=== PATIENT | female | born 1945 | race Caucasian/White ===

== ENCOUNTER 2016-06-19 12:19 | Emergency (ER) | payer MEDICARE, MEDICAID ==
[~2016-06-19] VITALS: Ht 167.6 cm; Wt 104.3 kg
[~2016-06-19 12:19] MED LIST: AUGMENTIN 875 M1 TA1 PO; CIPRO500 MG PO; COUMADIN2 M1 PO; COUMADIN2 MG PO; COUMADIN3 M1 PO; COZAAR100 MG PO; DAYPRO600 M1 PO; DOXYCYCLINE100 M3 PO; FLAGYL500 MG PO; HYDROCHLOROTHIA25 MG PO; LEVAQUIN750 MG PO; NEXIUM40 MG PO; PHENERGAN25 MG RC; PRILOSEC20 MG PO; PRILOSEC40 M1 PO; ROBAXIN750 MG PO; SOTALOL HCL120 MG PO; VICODIN 5/500 505 MG PO; VICODIN ES 7501 TAB PO
[2016-06-19 12:31] VITALS: BP 136/72
[2016-06-19 13:03] LABS: BASO % 0.3 % (0.0-1.0); EOS # 0.1 10*3/uL (0.0-0.4); HEMOGLOBIN 12.7 g/dl (12.0-16.0); IG # 0.1 10*3/uL (0.0-0.1); LYMPH # 2.2 10*3/uL (1.3-4.4); LYMPH % 18.4 % (27.0-41.0); MEAN CELL VOLUME 82.4 fl (81.0-99.0); MEAN CORPUSCULAR HGB 24.9 pg (27.0-31.0); MEAN CORPUSCULAR HGB CONC 30.2 g/dl (33.0-37.0); MEAN PLATELET VOLUME 10.6 fl (9.6-12.3); MONO # 0.6 10*3/uL (0.1-1.0); MONO % 4.6 % (3.0-9.0); NEUT % 75.2 % (47.0-73.0); PLATELET COUNT AUTOMATED 311 10*3/uL (130-400); RED CELL DISTRI WIDTH 15.3 % (0-14.5); WHITE BLOOD COUNT 11.9 10*3/uL (4.8-10.8)
[2016-06-19 13:14] LABS: INTERNATIONAL NORM RATIO 2.2 (2.0-3.5)
[2016-06-19 13:23] LABS: ALBUMIN 3.3 gm/dl (3.1-4.5); ALKALINE PHOSPHATASE 86 U/L (45-117); BILIRUBIN, TOTAL 0.7 mg/dl (0.2-1.0); BUN 13 mg/dl (7-24); CARBON DIOXIDE 28 mmol/L (21-32); CHLORIDE 105 mmol/L (98-107); CKMB 0.8 ng/ml (0.5-3.6); CPK 58 U/L (26-192); EST GLOM FILT AFRICAN AMERICAN 54 ml/min; GLUCOSE 133 mg/dL (65-99); POTASSIUM 3.8 mmol/L (3.5-5.1); SGOT/AST 15 IU/L (3-35); SGPT/ALT 16 U/L (12-78); SODIUM 142 mmol/L (136-145); TOTAL PROTEIN 7.9 gm/dL (6.4-8.2)
[2016-06-19 13:24] LABS: TROPONIN I < 0.015 ng/ml (<0.5)
[2016-06-19] MEDS ORDERED: PREDNISONE10 MG PO (13:50)
[2016-06-19] MEDS ORDERED: DOXYCYCLINE100 M3 PO (13:50)
== END 2016-06-19 14:11 | disposition left against medical advice (07) ==
LOC: ED 12:19 → EDHOLD 13:45 → ED 14:11
PROVIDERS: Internal Medicine
DX: R07.9 Chest pain, unspecified (principal); Z79.01 Long term (current) use of anticoagulants; I48.91 Unspecified atrial fibrillation

== ENCOUNTER → 2017-03-11 | Outpatient (CLI) | payer MEDICARE, MEDICAID ==
[~2017-03-11] MED LIST changes: +PREDNISONE10 MG PO
== END | disposition home or self-care (01) ==
LOC: CARD 03:22
DX: I48.0 Paroxysmal atrial fibrillation (principal)

== ENCOUNTER → 2017-08-07 | Outpatient (CLI) | payer MEDICARE, MEDICAID ==
[2017-08-07 10:44] LABS: BASO % 0.4 % (0.0-1.0); EOS # 0.2 10*3/uL (0.0-0.4); HEMATOCRIT 38.1 % (37.0-47.0); HEMOGLOBIN 11.6 g/dl (12.0-16.0); LYMPH % 27.5 % (27.0-41.0); MEAN CELL VOLUME 81.8 fl (81.0-99.0); MEAN CORPUSCULAR HGB 24.9 pg (27.0-31.0); MEAN CORPUSCULAR HGB CONC 30.4 g/dl (33.0-37.0); MEAN PLATELET VOLUME 10.7 fl (9.6-12.3); MONO # 0.4 10*3/uL (0.1-1.0); MONO % 4.9 % (3.0-9.0); NEUT # 4.8 10*3/uL (2.3-7.9); NEUT % 64.7 % (47.0-73.0); PLATELET COUNT AUTOMATED 256 10*3/uL (130-400); RED BLOOD COUNT 4.66 10*6/uL (4.10-5.10); RED CELL DISTRI WIDTH 16.4 % (0-14.5); WHITE BLOOD COUNT 7.4 10*3/uL (4.8-10.8)
[2017-08-07 11:07] LABS: ALBUMIN 3.3 gm/dl (3.1-4.5); CREATININE 1.25 mg/dL (0.55-1.02); POTASSIUM 3.7 mmol/L (3.5-5.1); TOTAL PROTEIN 7.1 gm/dL (6.4-8.2)
[2017-08-07 11:15] LABS: THYROID STIM HORMONE (HS) 3.72 uIU/ml (0.358-4.75)
== END | disposition home or self-care (01) ==
LOC: LAB 10:08
PROVIDERS: Internal Medicine
DX: I10 Essential (primary) hypertension (principal); E78.00 Pure hypercholesterolemia, unspecified; E66.01 Morbid (severe) obesity due to excess calories; Z79.899 Other long term (current) drug therapy

== ENCOUNTER 2018-07-03 14:13 | Emergency (ER) | payer MEDICARE, MEDICAID ==
[~2018-07-03] VITALS: Ht 167.6 cm; Wt 113.4 kg
--- NOTE | ~2018-07-03 | EKG ---
[place], [place] ELECTROCARDIOGRAM REPORT NAME: YI GONZÁLES UNIT #: [id number] ROOM: DOCTOR: EPIPHANY DRAFT REPORT BIRTHDATE: [birth year] [facility] Test Date: 2018-07-03 Test Time: 14:47:49 Pat Name: YI GONZÁLES Department: ER Room: Gender: F Assistant Production Editor: EKG.TX : 1945 Requested By: NADIA GARCIA Order Number: [id number] Reading MD: Rohit Sandoval MD Measurements Intervals [place] Rate: 83 P: [place]: QRS: 29 QRSD: 113 T: 20 QT: 389 QTc: 457 Interpretive Statements Atrial fibrillation Incomplete right bundle branch block Baseline wander in lead(s) III,aVF Electronically Signed On 07-03-2018 18:30:34 PST by Rohit Sandoval MD CM:EKGRPT:ELECTROCARDIOGRAM REPORT [id number] NADIA GARCIA EPIPHANY DRAFT REPORT NADIA GARCIA
[2018-07-03 14:56] LABS: BASO % 0.5 % (0.0-1.0); EOS # 0.1 10*3/uL (0.0-0.4); EOS % 0.7 % (1.0-4.0); HEMATOCRIT 34.4 % (37.0-47.0); HEMOGLOBIN 10.3 g/dl (12.0-16.0); LYMPH # 1.4 10*3/uL (1.3-4.4); LYMPH % 16.4 % (27.0-41.0); MEAN CELL VOLUME 76.1 fl (81.0-99.0); MEAN CORPUSCULAR HGB 22.8 pg (27.0-31.0); MEAN CORPUSCULAR HGB CONC 29.9 g/dl (33.0-37.0); MEAN PLATELET VOLUME 10.4 fl (9.6-12.3); MONO # 0.4 10*3/uL (0.1-1.0); MONO % 4.9 % (3.0-9.0); NEUT # 6.8 10*3/uL (2.3-7.9); PLATELET COUNT AUTOMATED 243 10*3/uL (130-400); RED BLOOD COUNT 4.52 10*6/uL (4.10-5.10); RED CELL DISTRI WIDTH 16.4 % (0-14.5); WHITE BLOOD COUNT 8.8 10*3/uL (4.8-10.8)
[2018-07-03 15:04] LABS: ACT PARTIAL THROMBO TIME 27.8 SECONDS (20.8-31.5); INTERNATIONAL NORM RATIO 1.6 (2.0-3.5)
[2018-07-03 15:17] LABS: ALBUMIN 3.4 gm/dl (3.1-4.5); ALKALINE PHOSPHATASE 87 U/L (45-117); BUN 12 mg/dl (7-24); CHLORIDE 108 mmol/L (98-107); CREATININE 1.16 mg/dL (0.55-1.02); LIPASE 124 U/L (73-393); POTASSIUM 3.6 mmol/L (3.5-5.1); SGOT/AST 35 IU/L (3-35); SGPT/ALT 31 U/L (12-78); SODIUM 140 mmol/L (136-145); TOTAL PROTEIN 7.2 gm/dL (6.4-8.2)
[2018-07-03 15:19] LABS: TROPONIN I < 0.015 ng/ml (<0.045)
[2018-07-03 16:02] LABS: BILIRUBIN NEGATIVE (NEGATIVE); BLOOD NEGATIVE (NEGATIVE); CLARITY CLEAR (CLEAR); COLOR YELLOW (YELLOW); GLUCOSE NEGATIVE (NEGATIVE); KETONE NEGATIVE (NEGATIVE); LEUKO ESTERASE TRACE (NEGATIVE); NITRITE NEGATIVE (NEGATIVE); SPECIFIC GRAVITY <= 1.005 (1.005-1.030)
[2018-07-03 16:24] LABS: RBC 0-2 rbc/hpf (0-2)
[2018-07-03] MEDS ORDERED: MEDROL DOSEPAK4 MG PO (17:18)
[2018-07-03] MEDS ORDERED: ZITHROMAX250 MG PO (17:18)
[2018-07-03] MEDS ORDERED: PROAIR HFA8.5 GM INH (17:18)
[2018-07-03] MEDS ORDERED: SIMETHICONE80 MG PO (17:20)
== END 2018-07-03 17:25 | disposition home or self-care (01) ==
LOC: ED 14:13
PROVIDERS: Nurse Practitioner Family
DX: J40 Bronchitis, not specified as acute or chronic (principal); K42.9 Umbilical hernia without obstruction or gangrene; Z79.899 Other long term (current) drug therapy; Z79.01 Long term (current) use of anticoagulants

== ENCOUNTER → 2018-09-19 | Outpatient (CLI) | payer MEDICARE, MEDICAID ==
[~2018-09-19] MED LIST changes: +MEDROL DOSEPAK4 MG PO; +PROAIR HFA8.5 GM INH; +SIMETHICONE80 MG PO; +ZITHROMAX250 MG PO
[2018-09-19 12:20] LABS: THYROID STIM HORMONE (HS) 4.04 uIU/ml (0.358-4.75)
== END | disposition home or self-care (01) ==
LOC: LAB 11:17
PROVIDERS: Internal Medicine Cardiovascular Disease
DX: I48.0 Paroxysmal atrial fibrillation (principal); R06.09 Other forms of dyspnea

== ENCOUNTER 2019-02-23 12:03 | Inpatient (IN) | payer MEDICARE, MEDICAID ==
[~2019-02-23] VITALS: Ht 167.6 cm; Wt 112.2 kg
[2019-02-23] VITALS (7 sets, daily range): BP systolic 154–164; BP diastolic 74–90
[2019-02-23] MEDS ORDERED: METOPROLOL TART50 M1 PO (12:15)
[2019-02-23 12:33] LABS: BASO % 0.4 % (0.0-1.0); EOS # 0.1 10*3/uL (0.0-0.4); EOS % 1.2 % (1.0-4.0); HEMOGLOBIN 10.7 g/dl (12.0-16.0); LYMPH # 1.5 10*3/uL (1.3-4.4); LYMPH % 20.6 % (27.0-41.0); MEAN CELL VOLUME 75.7 fl (81.0-99.0); MEAN CORPUSCULAR HGB 21.9 pg (27.0-31.0); MEAN CORPUSCULAR HGB CONC 28.9 g/dl (33.0-37.0); MEAN PLATELET VOLUME 11.8 fl (9.6-12.3); MONO # 0.5 10*3/uL (0.1-1.0); MONO % 6.3 % (3.0-9.0); NEUT # 5.2 10*3/uL (2.3-7.9); NEUT % 71.2 % (47.0-73.0); PLATELET COUNT AUTOMATED 257 10*3/uL (130-400); RED BLOOD COUNT 4.89 10*6/uL (4.10-5.10); RED CELL DISTRI WIDTH 17.8 % (0-14.5); WHITE BLOOD COUNT 7.3 10*3/uL (4.8-10.8)
[2019-02-23 12:43] LABS: ACT PARTIAL THROMBO TIME 34.2 SECONDS (20.0-32.1); INTERNATIONAL NORM RATIO 2.5 (2.0-3.5)
[2019-02-23 12:48] LABS: ALBUMIN 3.5 gm/dl (3.1-4.5); ALKALINE PHOSPHATASE 111 U/L (45-117); BUN 11 mg/dl (7-24); CHLORIDE 107 mmol/L (98-107); CREATININE 1.16 mg/dL (0.55-1.02); POTASSIUM 3.6 mmol/L (3.5-5.1); SGOT/AST 20 IU/L (3-35); SGPT/ALT 13 U/L (12-78); SODIUM 138 mmol/L (136-145); TOTAL PROTEIN 7.4 gm/dL (6.4-8.2)
[2019-02-23 12:50] LABS: TROPONIN I < 0.015 ng/ml (<0.045)
--- NOTE | 2019-02-23 12:58 | NUR ---
PT RESTING QUIELTY IN ROOM WITH FAMILY AT THE BEDSIDE. NO ACUTE DISTRESS NOTED, RESPIRATIONS 18, POX 99%. PT VOICES NO OTHER C/O AT THIS TIME.
--- NOTE | 2019-02-23 13:50 | NUR ---
A 73, admitted to , under the services of WAQAS Murrieta DO with a diagnosis of CHEST PAIN TO R/O SC. Chief complaint is SHORTNESS OF BREATH. Patient arrived via ambulatory from ER. Monitor applied. Initial assessment completed. Vital signs taken and recorded. WAQAS MURRIETA DO notified of admission to the unit. Orders received. See assessment for past medical history, medications and allergies. Patient and/or family oriented to unit. [facility] visitation policy reviewed. Clothing/patient valuable form completed. SAM RICHARD
[2019-02-23] MEDS ORDERED: KLOR-CON 1010 ME1 PO (15:29)
[2019-02-23] MEDS ORDERED: LASIX20 MG PO (15:30)
--- NOTE | 2019-02-23 16:43 | NUR ---
NOTIFIED DR MERCADO OF HOME MEDS RECONCILED.
--- NOTE | 2019-02-23 17:52 | NUR ---
Called ANSWERING SERVICE AND LEFT MESSAGE THAT DR. GROVER WAS CONSULTING HIM FOR THIS PATIENT FOR CHEST PAIN.
--- NOTE | 2019-02-23 19:35 | NUR ---
Patient resting quietly with no c/o discomfort. Respirations easy and regular. Blood pressure 163/78. Medicated with 2200 Metoprolol. No overt distress. RAMEZ GAUTAM
--- NOTE | 2019-02-23 23:48 | NUR ---
Patient sleeping in bed. Respirations easy and unlabored. No distress noted. Call light within reach.
[2019-02-24] VITALS: BP 130/61
--- NOTE | 2019-02-24 00:04 | NUR ---
24 HR chart check completed.
[2019-02-24 07:33] LABS: BASO % 0.4 % (0.0-1.0); EOS # 0.1 10*3/uL (0.0-0.4); EOS % 1.3 % (1.0-4.0); HEMATOCRIT 35.2 % (37.0-47.0); HEMOGLOBIN 10.4 g/dl (12.0-16.0); MEAN CELL VOLUME 74.7 fl (81.0-99.0); MEAN CORPUSCULAR HGB 22.1 pg (27.0-31.0); MEAN CORPUSCULAR HGB CONC 29.5 g/dl (33.0-37.0); MEAN PLATELET VOLUME 11.4 fl (9.6-12.3); MONO # 0.4 10*3/uL (0.1-1.0); MONO % 6.5 % (3.0-9.0); NEUT # 4.2 10*3/uL (2.3-7.9); NEUT % 62.7 % (47.0-73.0); PLATELET COUNT AUTOMATED 218 10*3/uL (130-400); RED BLOOD COUNT 4.71 10*6/uL (4.10-5.10); RED CELL DISTRI WIDTH 17.3 % (0-14.5); WHITE BLOOD COUNT 6.7 10*3/uL (4.8-10.8)
[2019-02-24 07:56] LABS: ALBUMIN 3.2 gm/dl (3.1-4.5); ALKALINE PHOSPHATASE 106 U/L (45-117); BUN 12 mg/dl (7-24); CHLORIDE 106 mmol/L (98-107); CHOLESTEROL 130 mg/dL (<200); CREATININE 1.04 mg/dL (0.55-1.02); HDL CHOLESTEROL 35 mg/dl (40-60); LDL CHOLESTEROL 72 mg/dL (9-159); PHOSPHOROUS 3.8 mg/dL (2.5-4.9); POTASSIUM 3.5 mmol/L (3.5-5.1); SGOT/AST 14 IU/L (3-35); SGPT/ALT 12 U/L (12-78); SODIUM 141 mmol/L (136-145); TRIGLYCERIDES 116 mg/dl (<150); VLDL CHOLESTEROL 23 mg/dL (6-40)
[2019-02-24 07:59] LABS: INTERNATIONAL NORM RATIO 2.5 (2.0-3.5)
[2019-02-24 08:00] VITALS: BP 140/80
--- NOTE | 2019-02-24 08:57 | NUR ---
DR. ADKINS IN TO SEE PATIENT. PER HIM PATIENT TO HAVE STRESS TEST IN MORNING.
[2019-02-24 10:25] LABS: VITAMIN D, 25-HYDROXY 17.3 ng/mL (30-100)
--- NOTE | 2019-02-24 10:28 | NUR ---
PATIENT UP IN CHAIR. VOICES NO COMPLAINTS AT THIS TIME. AWARE OF STRESS TEST ORDERED IN THE MORNING AND THAT SHE IS TO BE NPO AT MIDNIGHT. CALL LIGHT WITHIN REACH. WILL CONTINUE TO MONITOR.
--- NOTE | 2019-02-24 10:30 | NUR ---
Indigo Mixer in to talk to patient. Patient states lives at home alone with her family checking in on her. There are 0 steps in the home. Physician: Sylvester Keen [facility]acy: [facility] Home health services: none Patient's level of ADLs: INDEPENDENT Patient has working utilities: yes DME: none Follow-up physician's appointment after d/c: will be made by the hospitalist nurse director upon discharge Does patient want to access PORTAL?: no Discharge plan discussed with patient. She lives at home alone with her family checking in on her. She is independent in her ADLs and ambulation. Discussed home health care services and she denies any home needs at this time. When medically stable she will be discharged to home. Her sister will provide transportation on discharge. COMFORT ANTOINE
[2019-02-24 12:00] VITALS: BP 135/71
--- NOTE | 2019-02-24 13:54 | NUR ---
NOTIFIED DR. GROVER PATIENT FAMILY IS REQUESTING SOMEONE COME DISCUSS PLAN OF CARE. PATIENT AND FAMILY UPSET NO ONE IS ADDRESSING HER HERNIA. DR. GROVER TO COME TO FLOOR.
[2019-02-24 16:00] VITALS: BP 134/79
--- NOTE | 2019-02-24 19:50 | NUR ---
PATIENT SITTING IN BED WATCHING TV. RESPIRATIONS EVEN AND UNLABORED. CALL LIGHT WITHIN REACH.
[2019-02-24 20:00] VITALS: BP 144/63
--- NOTE | 2019-02-24 20:16 | NUR ---
PATIENT REFUSED LIPITOR UNTIL SHE CAN TALK TO DR. ADKINS IN THE MORNING. SHE STATED SHE TRIED lIPITOR IN THE PAST AND IT GAVE HER CRAMPS IN HER LEG AND SHE DOES NOT FEEL HER CHOLESTEROL LEVELS ARE OUT OF RANGE ENOUGH TO CALL FOR IT. EDUCATED PATIENT LIPITOR IS ALSO USED TO TREAT CHEST PAIN AND REDUCE RISK OF HEAT ATTACK. PATIENT STILL WANTING TO WAIT TO TALK TO DR. ADKINS.
[2019-02-25] VITALS: BP 148/76
--- NOTE | 2019-02-25 07:05 | NUR ---
ARRIVED ON SHIFT, INTRODUCED TO PATIENT, BEDSIDE REPORT RECEIVED, WHITE BOARD UPDATED. PATIENT NPO FOR STRESS TEST. NO NEEDS VOICED AT THIS TIME.
[2019-02-25 07:20] LABS: BUN 14 mg/dl (7-24); CHLORIDE 106 mmol/L (98-107); CREATININE 1.08 mg/dL (0.55-1.02); POTASSIUM 3.6 mmol/L (3.5-5.1); SODIUM 140 mmol/L (136-145)
--- NOTE | 2019-02-25 07:49 | NUR ---
Shift chart check completed.
[2019-02-25 08:00] VITALS: BP 122/76
--- NOTE | 2019-02-25 09:00 | NUR ---
Beer Brewer in to see patient. She is sitting up in her bedside chair without distress noted. She is awaiting her stress test. No new needs or request at this time. She denies any home needs. When medically stable she will be discharged to home.
--- NOTE | 2019-02-25 10:10 | NUR ---
INFORMED CONSENT OBTAINED FOR A LEXISCAN STRESS TEST WITH DR. ADKINS. RESTING EKG A-FIB WITH A HT RT OF 76, AND BP OF 134/84. POX 100% VIA RA, WITH CLEAR BREATH SOUNDS LD. COMPLETED ONE MINUTE OF A LEXISCAN PROTOCOL RECEIVING LEXISCAN 0.4 MG OVER 10 SECONDS. DEVELOPED BEATHLESSNESS AND "PANICKY" THAT WAS RESOLVED IN RECOVERY. HAD A PEAK HT RT OF 92, WITH A BP OF 132/76. LAST RECOVERY HT RT OF 80, WITH A BP OF 124/84. AWAITING NUCLEAR IMAGING IN STABLE CONDITION.
[2019-02-25 12:00] VITALS: BP 134/89
[2019-02-25 16:00] VITALS: BP 137/80
[2019-02-25] MEDS ORDERED: ATORVASTATIN CA40 M1 PO (16:13)
[2019-02-25] MEDS ORDERED: VITAMIN D32000 UNI1 PO (16:13)
--- NOTE | 2019-02-25 18:05 | NUR ---
Discharge instructions reviewed with patient/family. Patient receptive and verbalizes understanding. Follow-up care arranged. Written instructions given to patient/family. IV WAS OUT, MONITOR REMOVED, TAKEN OUT IN W/C BY HOSPITAL STAFF. SARAY THORNE
== END 2019-02-25 18:05 | disposition home or self-care (01) | DRG 313 ==
LOC: ED 12:03 → EDHOLD 14:48 → 4E 14:48
PROVIDERS: Emergency Medicine; Student in an Organized Health Care Education/Training Program; ADMIT Internal Medicine
PROC: 4A02XM4 Measurement of Cardiac Total Activity, External Approach (ICD-10-PCS; principal; 2019-02-25)
PROC: 3E073KZ Introduction of Other Diagnostic Substance into Coronary Artery, Percutaneous Approach (ICD-10-PCS; principal; 2019-02-25)
DX: R07.89 Other chest pain (principal); D68.59 Other primary thrombophilia; I50.32 Chronic diastolic (congestive) heart failure; I13.0 Hypertensive heart and chronic kidney disease with heart failure and stage 1 through stage 4 chronic kidney disease, or unspecified chronic kidney disease; K21.9 Gastro-esophageal reflux disease without esophagitis; K42.9 Umbilical hernia without obstruction or gangrene; E11.22 Type 2 diabetes mellitus with diabetic chronic kidney disease; I48.0 Paroxysmal atrial fibrillation; N18.3 Chronic kidney disease, stage 3 (moderate); E11.65 Type 2 diabetes mellitus with hyperglycemia; D50.9 Iron deficiency anemia, unspecified; E66.9 Obesity, unspecified; Z79.01 Long term (current) use of anticoagulants; Z90.710 Acquired absence of both cervix and uterus; Z90.49 Acquired absence of other specified parts of digestive tract; Z82.5 Family history of asthma and other chronic lower respiratory diseases; Z80.0 Family history of malignant neoplasm of digestive organs; Z79.899 Other long term (current) drug therapy; Z92.3 Personal history of irradiation; Z85.3 Personal history of malignant neoplasm of breast; Z68.39 Body mass index [BMI] 39.0-39.9, adult

== ENCOUNTER 2019-06-09 15:16 | Emergency (ER) | payer MEDICARE, MEDICAID ==
[~2019-06-09] VITALS: Ht 167.6 cm; Wt 108.9 kg
[~2019-06-09 15:16] MED LIST changes: +ATORVASTATIN CA40 M1 PO; +KLOR-CON 1010 ME1 PO; +LASIX20 MG PO; +METOPROLOL TART50 M1 PO; +VITAMIN D32000 UNI1 PO
[2019-06-09 15:45] LABS: BASO % 0.3 % (0.0-1.0); EOS # 0.1 10*3/uL (0.0-0.4); EOS % 1.2 % (1.0-4.0); HEMATOCRIT 34.8 % (37.0-47.0); HEMOGLOBIN 9.8 g/dl (12.0-16.0); LYMPH # 1.6 10*3/uL (1.3-4.4); LYMPH % 21.8 % (27.0-41.0); MEAN CELL VOLUME 75.7 fl (81.0-99.0); MEAN CORPUSCULAR HGB 21.3 pg (27.0-31.0); MEAN CORPUSCULAR HGB CONC 28.2 g/dl (33.0-37.0); MEAN PLATELET VOLUME 10.9 fl (9.6-12.3); MONO # 0.5 10*3/uL (0.1-1.0); MONO % 6.4 % (3.0-9.0); NEUT # 5.2 10*3/uL (2.3-7.9); NEUT % 69.9 % (47.0-73.0); PLATELET COUNT AUTOMATED 225 10*3/uL (130-400); RED CELL DISTRI WIDTH 17.2 % (0-14.5); WHITE BLOOD COUNT 7.5 10*3/uL (4.8-10.8)
[2019-06-09 16:01] LABS: ALBUMIN 3.5 gm/dl (3.1-4.5); ALKALINE PHOSPHATASE 117 U/L (45-117); BUN 13 mg/dl (7-24); CHLORIDE 110 mmol/L (98-107); POTASSIUM 3.8 mmol/L (3.5-5.1); SGOT/AST 18 IU/L (3-35); SGPT/ALT 20 U/L (12-78); SODIUM 142 mmol/L (136-145); TOTAL PROTEIN 7.4 gm/dL (6.4-8.2)
[2019-06-09 16:07] LABS: TROPONIN I < 0.015 ng/ml (<0.045)
[2019-06-09 17:36] LABS: IRON 23 ug/dL (50-170); TOTAL IRON BINDING CAPACITY 506 ug/dl (250-450)
[2019-06-10] MEDS ORDERED: IRBESARTAN150 MG PO (03:15)
[2019-06-10] MEDS ORDERED: ELIQUIS5 M1 PO (03:16)
== END 2019-06-09 18:40 | disposition home or self-care (01) ==
LOC: ED 15:16
PROVIDERS: Emergency Medicine
DX: I13.0 Hypertensive heart and chronic kidney disease with heart failure and stage 1 through stage 4 chronic kidney disease, or unspecified chronic kidney disease (principal); E11.22 Type 2 diabetes mellitus with diabetic chronic kidney disease; N18.9 Chronic kidney disease, unspecified; K21.9 Gastro-esophageal reflux disease without esophagitis; I48.91 Unspecified atrial fibrillation; E66.9 Obesity, unspecified; J45.909 Unspecified asthma, uncomplicated; Z79.899 Other long term (current) drug therapy; Z79.01 Long term (current) use of anticoagulants; Z68.39 Body mass index [BMI] 39.0-39.9, adult

== ENCOUNTER 2019-06-10 03:10 | Inpatient (IN) | payer MEDICARE, MEDICAID ==
[2019-06-10] VITALS (11 sets, daily range): BP systolic 105–170; BP diastolic 66–93
[~2019-06-10] VITALS: Ht 167.6 cm; Wt 106.4 kg
[2019-06-10] MEDS ORDERED: IRBESARTAN150 MG PO (03:15)
[2019-06-10] MEDS ORDERED: ELIQUIS5 M1 PO (03:16)
[2019-06-10 04:09] LABS: BASO % 0.3 % (0.0-1.0); EOS # 0.1 10*3/uL (0.0-0.4); EOS % 1.5 % (1.0-4.0); HEMATOCRIT 32.2 % (37.0-47.0); HEMOGLOBIN 9.2 g/dl (12.0-16.0); LYMPH # 1.3 10*3/uL (1.3-4.4); LYMPH % 22.1 % (27.0-41.0); MEAN CELL VOLUME 75.6 fl (81.0-99.0); MEAN CORPUSCULAR HGB 21.6 pg (27.0-31.0); MEAN CORPUSCULAR HGB CONC 28.6 g/dl (33.0-37.0); MEAN PLATELET VOLUME 11.2 fl (9.6-12.3); MONO # 0.4 10*3/uL (0.1-1.0); MONO % 6.5 % (3.0-9.0); NEUT # 4.2 10*3/uL (2.3-7.9); NEUT % 69.3 % (47.0-73.0); PLATELET COUNT AUTOMATED 196 10*3/uL (130-400); RED BLOOD COUNT 4.26 10*6/uL (4.10-5.10); RED CELL DISTRI WIDTH 17.1 % (0-14.5)
[2019-06-10 04:18] LABS: INTERNATIONAL NORM RATIO 2.1 (2.0-3.5)
[2019-06-10 04:25] LABS: ALBUMIN 3.2 gm/dl (3.1-4.5); ALKALINE PHOSPHATASE 108 U/L (45-117); BUN 14 mg/dl (7-24); CHLORIDE 112 mmol/L (98-107); CREATININE 1.01 mg/dL (0.55-1.02); POTASSIUM 3.8 mmol/L (3.5-5.1); SGOT/AST 19 IU/L (3-35); SGPT/ALT 20 U/L (12-78); SODIUM 143 mmol/L (136-145); TOTAL PROTEIN 6.6 gm/dL (6.4-8.2)
[2019-06-10 04:29] LABS: TROPONIN I < 0.015 ng/ml (<0.045)
--- NOTE | 2019-06-10 09:10 | NUR ---
A 73, admitted to 4E, under the services of JULIO CESAR Ibarra DO with a diagnosis of CHF. Chief complaint is HEAVINESS IN MID CHEST,SOB. Patient arrived via stretcher from ER. Monitor applied. Initial assessment completed. Vital signs taken and recorded. JULIO CESAR IBARRA DO notified of admission to the unit. Orders received. See assessment for past medical history, medications and allergies. Patient and/or family oriented to unit. visitation policy reviewed. Clothing/patient valuable form completed. RODOLFO HINKLE
--- NOTE | 2019-06-10 09:20 | NUR ---
DR. LANGE OFFICE NOTIFIED OF CAONSULT. DR. WILSON HERE AND IS AWARE OF CONSULT.
[2019-06-11 00:07] VITALS: BP 129/71
[2019-06-11 06:46] LABS: BASO % 0.4 % (0.0-1.0); EOS # 0.1 10*3/uL (0.0-0.4); EOS % 1.3 % (1.0-4.0); HEMATOCRIT 38.2 % (37.0-47.0); HEMOGLOBIN 10.7 g/dl (12.0-16.0); MEAN CELL VOLUME 74.2 fl (81.0-99.0); MEAN CORPUSCULAR HGB 20.8 pg (27.0-31.0); MEAN PLATELET VOLUME 11.2 fl (9.6-12.3); MONO # 0.4 10*3/uL (0.1-1.0); MONO % 5.8 % (3.0-9.0); NEUT # 5.1 10*3/uL (2.3-7.9); NEUT % 66.2 % (47.0-73.0); PLATELET COUNT AUTOMATED 251 10*3/uL (130-400); RED BLOOD COUNT 5.15 10*6/uL (4.10-5.10); RED CELL DISTRI WIDTH 17.2 % (0-14.5); WHITE BLOOD COUNT 7.7 10*3/uL (4.8-10.8)
[2019-06-11 07:00] LABS: INTERNATIONAL NORM RATIO 1.6 (2.0-3.5)
[2019-06-11 07:22] LABS: POTASSIUM 3.4 mmol/L (3.5-5.1)
[2019-06-11 07:41] LABS: CREATININE 1.15 mg/dL (0.55-1.02); FREE T4 1.11 ng/dl (0.76-1.46); PHOSPHOROUS 4.1 mg/dL (2.5-4.9); THYROID STIM HORMONE (HS) 4.47 uIU/ml (0.358-4.75)
[2019-06-11 08:00] VITALS: BP 133/84
--- NOTE | 2019-06-11 09:00 | NUR ---
Receiving Inspector in to talk to patient. Patient states lives at home with alone. There are few steps in the home. Physician: suri verde [facility]acy: [facility] Home health services: none Patient's level of ADLs: INDEPENDENT Patient has working utilities: all working DME: none Follow-up physician's appointment after d/c: will be made by hospitalist nurse director upon discharge Does patient want to access PORTAL?: no Discharge plan discussed with patient, she lives at home alone, she is independent in adls and ambulation, drives, she states she will return home when medically stable and denies any home needs. LEON ROBERTS
--- NOTE | 2019-06-11 09:00 | NUR ---
Firer Tunnel Kiln in to talk to patient. Patient states lives at home with alone. There are few steps in the home. 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 LEON ROBERTS
[2019-06-11 10:01] LABS: VITAMIN D, 25-HYDROXY 32.3 ng/mL (30-100)
[2019-06-11 12:00] VITALS: BP 133/76
[2019-06-11 15:16] VITALS: BP 114/77
[2019-06-11 20:00] VITALS: BP 112/65
[2019-06-12] VITALS: BP 129/68
[2019-06-12 08:00] VITALS: BP 127/70
--- NOTE | 2019-06-12 09:00 | NUR ---
case management visits with patient, she is hoping to be discharged home later this afternoon, she denies any home needs at this time
[2019-06-12] MEDS ORDERED: ALDACTONE25 MG PO (12:42)
[2019-06-12] MEDS ORDERED: ELIQUIS5 M1 PO (12:42)
--- NOTE | 2019-06-12 13:21 | NUR ---
msdis Discharge instructions reviewed with patient/family. Patient receptive and verbalizes understanding. Follow-up care arranged. Written instructions given to patient/family. ELA OWENS
== END 2019-06-12 13:21 | disposition home or self-care (01) | DRG 291 ==
LOC: ED 03:10 → EDHOLD 04:51 → 4E 04:51
PROVIDERS: Emergency Medicine; Internal Medicine; ADMIT Family Medicine
DX: I13.0 Hypertensive heart and chronic kidney disease with heart failure and stage 1 through stage 4 chronic kidney disease, or unspecified chronic kidney disease (principal); I50.33 Acute on chronic diastolic (congestive) heart failure; D68.59 Other primary thrombophilia; E44.1 Mild protein-calorie malnutrition; I48.21 Permanent atrial fibrillation; R07.89 Other chest pain; J45.30 Mild persistent asthma, uncomplicated; E87.8 Other disorders of electrolyte and fluid balance, not elsewhere classified; K21.9 Gastro-esophageal reflux disease without esophagitis; E66.9 Obesity, unspecified; G47.33 Obstructive sleep apnea (adult) (pediatric); E78.00 Pure hypercholesterolemia, unspecified; D50.9 Iron deficiency anemia, unspecified; N18.3 Chronic kidney disease, stage 3 (moderate); E11.22 Type 2 diabetes mellitus with diabetic chronic kidney disease; E11.65 Type 2 diabetes mellitus with hyperglycemia; Z85.3 Personal history of malignant neoplasm of breast; Z90.49 Acquired absence of other specified parts of digestive tract; Z90.710 Acquired absence of both cervix and uterus; Z80.0 Family history of malignant neoplasm of digestive organs; Z82.5 Family history of asthma and other chronic lower respiratory diseases; Z79.899 Other long term (current) drug therapy; Z79.01 Long term (current) use of anticoagulants; Z90.11 Acquired absence of right breast and nipple; Z68.37 Body mass index [BMI] 37.0-37.9, adult

== ENCOUNTER → 2019-06-15 | Outpatient (CLI) | payer MEDICARE, MEDICAID ==
[~2019-06-15] MED LIST changes: +ALDACTONE25 MG PO; +ELIQUIS5 M1 PO; +IRBESARTAN150 MG PO
[2019-06-15 14:18] LABS: CREATININE 1.27 mg/dL (0.55-1.02)
== END | disposition home or self-care (01) ==
LOC: LAB 13:00
PROVIDERS: Registered Nurse
DX: E87.6 Hypokalemia (principal); I50.9 Heart failure, unspecified

== ENCOUNTER 2019-11-10 09:36 | Observation (INO) | payer MEDICARE, MEDICAID ==
[~2019-11-10] VITALS: Ht 167.6 cm; Wt 111.2 kg
[2019-11-10 09:49] VITALS: BP 148/77
[2019-11-10 10:19] LABS: BASO % 0.3 % (0.0-1.0); EOS # 0.1 10*3/uL (0.0-0.4); LYMPH # 1.3 10*3/uL (1.3-4.4); LYMPH % 22.8 % (27.0-41.0); MEAN CELL VOLUME 79.6 fl (81.0-99.0); MEAN CORPUSCULAR HGB 22.6 pg (27.0-31.0); MEAN CORPUSCULAR HGB CONC 28.3 g/dl (33.0-37.0); MEAN PLATELET VOLUME 10.7 fl (9.6-12.3); MONO # 0.3 10*3/uL (0.1-1.0); MONO % 4.8 % (3.0-9.0); NEUT # 4.2 10*3/uL (2.3-7.9); NEUT % 70.8 % (47.0-73.0); PLATELET COUNT AUTOMATED 211 10*3/uL (130-400); RED BLOOD COUNT 4.52 10*6/uL (4.10-5.10); RED CELL DISTRI WIDTH 17.5 % (0-14.5); WHITE BLOOD COUNT 5.9 10*3/uL (4.8-10.8)
[2019-11-10 10:31] LABS: ACT PARTIAL THROMBO TIME 29.6 SECONDS (20.0-32.1); ALBUMIN 3.4 gm/dl (3.1-4.5); ALKALINE PHOSPHATASE 86 U/L (45-117); BUN 15 mg/dl (7-24); CHLORIDE 110 mmol/L (98-107); INTERNATIONAL NORM RATIO 1.2 (2.0-3.5); LIPASE 106 U/L (73-393); POTASSIUM 3.9 mmol/L (3.5-5.1); SGOT/AST 18 IU/L (3-35); SGPT/ALT 19 U/L (12-78); SODIUM 140 mmol/L (136-145); TOTAL PROTEIN 7.1 gm/dL (6.4-8.2)
[2019-11-10 10:33] LABS: TROPONIN I < 0.015 ng/ml (<0.045)
[2019-11-10 10:56] LABS: BILIRUBIN 1+ (NEGATIVE); BLOOD NEGATIVE (NEGATIVE); CLARITY CLEAR (CLEAR); COLOR YELLOW (YELLOW); GLUCOSE NEGATIVE (NEGATIVE); KETONE NEGATIVE (NEGATIVE); LEUKO ESTERASE NEGATIVE (NEGATIVE); NITRITE NEGATIVE (NEGATIVE); SPECIFIC GRAVITY 1.015 (1.005-1.030); UROBILINOGEN 0.2 E.U./dl (0.2-1.0)
[2019-11-10 13:03] VITALS: BP 133/70
[2019-11-10] MEDS ORDERED: AVAPRO150 M1 PO (13:31)
[2019-11-10] MEDS ORDERED: KLOR-CON M2020 ME1 PO (13:34)
[2019-11-10] MEDS ORDERED: VENT7GM INH (13:35)
--- NOTE | 2019-11-10 14:35 | NUR ---
A 74YO FEMALE, admitted to , under the services of WAQAS Murrieta DO with a diagnosis of DIZZINESS/NEAR SYNCOPE. Chief complaint is DIZZINESS W SITTING, THEN UNSTEADINESS WITH STANDING SINCE YESTERDAY, SHORTNESS OF BREATH WITH AMBULATION. Patient arrived via stretcher from ER. Monitor applied. Initial assessment completed. Vital signs taken and recorded. WAQAS MURRIETA DO notified of admission to the unit. Orders received. See assessment for past medical history, medications and allergies. Patient and/or family oriented to unit. [facility] reviewed. Clothing/patient valuable form completed. CHADWICK LUJAN
[2019-11-10 14:42] VITALS: BP 135/70
[2019-11-10 14:45] VITALS: BP 133/70
--- NOTE | 2019-11-10 14:45 | NUR ---
ORTHOSTATIC BLOOD PRESSURES OBTAINED FOLLOWS: LYING BP 110/54 PULSE 57, SITTING BP 117/50 PULSE 74, STANDING 111/66 PULSE 70. PATIENT REPORTS DIZZINESS W/SITTING UP AND UNSTEADINESS W/STANDING UP.
[2019-11-10 16:00] VITALS: BP 130/69
[2019-11-10 20:00] VITALS: BP 120/58
--- NOTE | 2019-11-10 23:45 | NUR ---
24 HR chart check completed.
[2019-11-11] VITALS: BP 115/39; BP 120/60
--- NOTE | 2019-11-11 02:01 | NUR ---
PATIENT SLEEPING, NO DISTRESS NOTED, BREATHING IS EASY AND REGULAR ON ROOM AIR. CALL LIGHT WITHIN REACH, WILL MONITOR
--- NOTE | 2019-11-11 04:00 | NUR ---
PATIENT STILL SLEEPING. NO DISTRESS NOTED. CALL LIGHT WITHIN REACH, WILL MONITOR
[2019-11-11 06:44] LABS: BASO % 0.4 % (0.0-1.0); EOS # 0.1 10*3/uL (0.0-0.4); EOS % 1.9 % (1.0-4.0); LYMPH # 1.7 10*3/uL (1.3-4.4); LYMPH % 30.6 % (27.0-41.0); MEAN CELL VOLUME 78.5 fl (81.0-99.0); MEAN CORPUSCULAR HGB 22.9 pg (27.0-31.0); MEAN CORPUSCULAR HGB CONC 29.1 g/dl (33.0-37.0); MEAN PLATELET VOLUME 10.9 fl (9.6-12.3); MONO # 0.3 10*3/uL (0.1-1.0); MONO % 6.1 % (3.0-9.0); NEUT # 3.3 10*3/uL (2.3-7.9); NEUT % 60.8 % (47.0-73.0); PLATELET COUNT AUTOMATED 184 10*3/uL (130-400); RED BLOOD COUNT 4.33 10*6/uL (4.10-5.10); RED CELL DISTRI WIDTH 17.2 % (0-14.5); WHITE BLOOD COUNT 5.4 10*3/uL (4.8-10.8)
[2019-11-11 07:14] LABS: INTERNATIONAL NORM RATIO 1.2 (2.0-3.5)
[2019-11-11 07:20] LABS: BUN 11 mg/dl (7-24); CHLORIDE 112 mmol/L (98-107); CREATININE 0.89 mg/dL (0.55-1.02); POTASSIUM 3.7 mmol/L (3.5-5.1); SODIUM 141 mmol/L (136-145)
[2019-11-11 08:00] VITALS: BP 125/67
--- NOTE | 2019-11-11 09:00 | NUR ---
Coloring Checker in to talk to patient. Patient states lives at home with alone. There are no steps in the home. Physician: suri verde [facility] [place] [facility]: none Patient's level of ADLs: INDEPENDENT Patient has working utilities: all working DME: none Follow-up physician's appointment after d/c: will be made by hospitalist nurse director upon discharge Does patient want to access PORTAL?: no Discharge plan discussed with patient, she states he lives at home alone, she is independent in adls and ambulation, drives, she states she will return home when discharged and denies any home needs, case management will follow. LEON ROBERTS
--- NOTE | 2019-11-11 10:20 | NUR ---
IN TO SEE PATIENT.
[2019-11-11] MEDS ORDERED: Lopressor25 MG PO (11:07)
[2019-11-11] MEDS ORDERED: DEBROX15 ML OT (11:07)
[2019-11-11] MEDS ORDERED: MECLIZINE HCL25 M2 PO (11:07)
--- NOTE | 2019-11-11 11:55 | NUR ---
Discharge instructions reviewed with patient. Patient receptive and verbalizes understanding. Follow-up care arranged. Written instructions given to patient. BILL WILSON
== END 2019-11-11 11:55 | disposition home or self-care (01) ==
LOC: ED 09:36 → EDHOLD 12:40 → 5E 12:40
PROVIDERS: Emergency Medicine; Internal Medicine; ADMIT Internal Medicine
DX: R42 Dizziness and giddiness (principal); R00.1 Bradycardia, unspecified; D50.9 Iron deficiency anemia, unspecified; R79.1 Abnormal coagulation profile; E87.8 Other disorders of electrolyte and fluid balance, not elsewhere classified; R79.89 Other specified abnormal findings of blood chemistry; R82.2 Biliuria; I48.91 Unspecified atrial fibrillation; J45.909 Unspecified asthma, uncomplicated; R06.82 Tachypnea, not elsewhere classified; I13.0 Hypertensive heart and chronic kidney disease with heart failure and stage 1 through stage 4 chronic kidney disease, or unspecified chronic kidney disease; I50.9 Heart failure, unspecified; E11.22 Type 2 diabetes mellitus with diabetic chronic kidney disease; N18.9 Chronic kidney disease, unspecified; E11.65 Type 2 diabetes mellitus with hyperglycemia

== ENCOUNTER → 2020-01-05 | Outpatient (CLI) | payer MEDICARE, MEDICAID ==
[~2020-01-05] MED LIST changes: +AVAPRO150 M1 PO; +DEBROX15 ML OT; +KLOR-CON M2020 ME1 PO; +Lopressor25 MG PO; +MECLIZINE HCL25 M2 PO; +VENT7GM INH
== END | disposition home or self-care (01) ==
LOC: CARD 10:07
DX: I48.20 Chronic atrial fibrillation, unspecified (principal); R42 Dizziness and giddiness; R00.1 Bradycardia, unspecified

== ENCOUNTER 2020-03-16 15:04 | Observation (INO) | payer MEDICARE, MEDICAID ==
[~2020-03-16] VITALS: Ht 180.3 cm; Wt 108.6 kg
[2020-03-16 15:06] VITALS: BP 138/66
[2020-03-16 15:28] LABS: BASO % 0.2 % (0.0-1.0); EOS # 0.1 10*3/uL (0.0-0.4); EOS % 0.7 % (1.0-4.0); HEMATOCRIT 40.2 % (37.0-47.0); LYMPH # 1.8 10*3/uL (1.3-4.4); LYMPH % 20.9 % (27.0-41.0); MEAN CELL VOLUME 78.1 fl (81.0-99.0); MEAN CORPUSCULAR HGB 22.5 pg (27.0-31.0); MEAN CORPUSCULAR HGB CONC 28.9 g/dl (33.0-37.0); MEAN PLATELET VOLUME 10.4 fl (9.6-12.3); MONO # 0.4 10*3/uL (0.1-1.0); MONO % 4.9 % (3.0-9.0); NEUT # 6.3 10*3/uL (2.3-7.9); NEUT % 73.1 % (47.0-73.0); PLATELET COUNT AUTOMATED 238 10*3/uL (130-400); RED BLOOD COUNT 5.15 10*6/uL (4.10-5.10); WHITE BLOOD COUNT 8.6 10*3/uL (4.8-10.8)
[2020-03-16 15:36] LABS: ACT PARTIAL THROMBO TIME 31.9 SECONDS (20.0-32.1); INTERNATIONAL NORM RATIO 1.5 (2.0-3.5)
[2020-03-16 15:42] LABS: ALBUMIN 3.6 gm/dl (3.1-4.5); ALKALINE PHOSPHATASE 87 U/L (45-117); BUN 18 mg/dl (7-24); CHLORIDE 109 mmol/L (98-107); POTASSIUM 3.4 mmol/L (3.5-5.1); SGOT/AST 19 IU/L (3-35); SGPT/ALT 18 U/L (12-78); SODIUM 141 mmol/L (136-145); TOTAL PROTEIN 7.7 gm/dL (6.4-8.2)
[2020-03-16 15:46] LABS: TROPONIN I < 0.015 ng/ml (<0.045)
[2020-03-16 20:25] VITALS: BP 130/76
[2020-03-16 20:40] VITALS: BP 146/78
[2020-03-16] MEDS ORDERED: Coumadin2 MG PO (21:02)
[2020-03-16 21:43] LABS: BILIRUBIN Negative (Negative); BLOOD Negative (Negative); CLARITY Clear (Clear); COLOR Yellow (Yellow); GLUCOSE Negative (Negative); KETONE Negative (Negative); LEUKO ESTERASE Negative (Negative); NITRITE Negative (Negative); SPECIFIC GRAVITY >= 1.030 (1.001-1.030)
[2020-03-16 22:10] LABS: BACTERIA TRACE
[2020-03-16 22:11] LABS: MUCOUS 1+
[2020-03-17] VITALS: BP 126/79
[2020-03-17 06:43] LABS: BASO % 0.3 % (0.0-1.0); EOS # 0.1 10*3/uL (0.0-0.4); EOS % 1.1 % (1.0-4.0); HEMATOCRIT 37.7 % (37.0-47.0); LYMPH % 30.7 % (27.0-41.0); MEAN CELL VOLUME 78.1 fl (81.0-99.0); MEAN CORPUSCULAR HGB 22.4 pg (27.0-31.0); MEAN CORPUSCULAR HGB CONC 28.6 g/dl (33.0-37.0); MEAN PLATELET VOLUME 11.1 fl (9.6-12.3); MONO # 0.4 10*3/uL (0.1-1.0); MONO % 6.2 % (3.0-9.0); NEUT % 61.4 % (47.0-73.0); PLATELET COUNT AUTOMATED 197 10*3/uL (130-400); RED BLOOD COUNT 4.83 10*6/uL (4.10-5.10); RED CELL DISTRI WIDTH 18.9 % (0-14.5); WHITE BLOOD COUNT 6.5 10*3/uL (4.8-10.8)
[2020-03-17 06:54] LABS: INTERNATIONAL NORM RATIO 1.3 (2.0-3.5)
[2020-03-17 06:59] LABS: ALBUMIN 2.9 gm/dl (3.1-4.5); BUN 14 mg/dl (7-24); CHLORIDE 113 mmol/L (98-107); CHOLESTEROL 141 mg/dL (<200); CREATININE 0.97 mg/dL (0.55-1.02); POTASSIUM 4.1 mmol/L (3.5-5.1); SGOT/AST 16 IU/L (3-35); SGPT/ALT 14 U/L (12-78); SODIUM 142 mmol/L (136-145); TRIGLYCERIDES 101 mg/dl (<150); VLDL CHOLESTEROL 20 mg/dL (6-40)
[2020-03-17 07:07] LABS: ALKALINE PHOSPHATASE 66 U/L (45-117); FREE T4 0.99 ng/dl (0.76-1.46); HDL CHOLESTEROL 38 mg/dl (40-60); LDL CHOLESTEROL 83 mg/dL (9-159); TOTAL PROTEIN 6.4 gm/dL (6.4-8.2)
[2020-03-17 12:00] VITALS: BP 129/71
[2020-03-17 16:00] VITALS: BP 118/52
[2020-03-17] MEDS ORDERED: METOPROLOL TART50 M1 PO (17:37)
[2020-03-17 20:00] VITALS: BP 113/80
[2020-03-18] VITALS: BP 118/54
[2020-03-18 06:25] LABS: BASO % 0.3 % (0.0-1.0); EOS # 0.1 10*3/uL (0.0-0.4); EOS % 1.2 % (1.0-4.0); HEMATOCRIT 39.1 % (37.0-47.0); LYMPH # 1.8 10*3/uL (1.3-4.4); LYMPH % 27.7 % (27.0-41.0); MEAN CORPUSCULAR HGB 22.8 pg (27.0-31.0); MEAN CORPUSCULAR HGB CONC 28.9 g/dl (33.0-37.0); MEAN PLATELET VOLUME 11.2 fl (9.6-12.3); MONO # 0.3 10*3/uL (0.1-1.0); MONO % 5.2 % (3.0-9.0); NEUT # 4.3 10*3/uL (2.3-7.9); NEUT % 65.4 % (47.0-73.0); PLATELET COUNT AUTOMATED 198 10*3/uL (130-400); RED BLOOD COUNT 4.95 10*6/uL (4.10-5.10); RED CELL DISTRI WIDTH 18.8 % (0-14.5); WHITE BLOOD COUNT 6.6 10*3/uL (4.8-10.8)
[2020-03-18 06:26] LABS: BUN 12 mg/dl (7-24); CHLORIDE 112 mmol/L (98-107); CREATININE 0.94 mg/dL (0.55-1.02); POTASSIUM 4.3 mmol/L (3.5-5.1); SODIUM 141 mmol/L (136-145)
[2020-03-18 06:31] LABS: INTERNATIONAL NORM RATIO 1.3 (2.0-3.5)
[2020-03-18 08:00] VITALS: BP 120/63
[2020-03-18] MEDS ORDERED: MECLIZINE HCL25 M2 PO (11:51)
== END 2020-03-18 12:15 | disposition home or self-care (01) ==
LOC: ED 15:04 → EDHOLD 16:53 → 5E 19:06
PROVIDERS: Emergency Medicine; Student in an Organized Health Care Education/Training Program; ADMIT Family Medicine; ATTEND Family Medicine
DX: R42 Dizziness and giddiness (principal); R55 Syncope and collapse; R07.89 Other chest pain; R00.2 Palpitations; R00.0 Tachycardia, unspecified; R06.82 Tachypnea, not elsewhere classified; R79.1 Abnormal coagulation profile; I13.0 Hypertensive heart and chronic kidney disease with heart failure and stage 1 through stage 4 chronic kidney disease, or unspecified chronic kidney disease; I50.9 Heart failure, unspecified; N18.9 Chronic kidney disease, unspecified; I48.91 Unspecified atrial fibrillation; N17.0 Acute kidney failure with tubular necrosis; E66.9 Obesity, unspecified; D50.9 Iron deficiency anemia, unspecified

== ENCOUNTER → 2020-10-10 | Outpatient (CLI) | payer MEDICARE, MEDICAID ==
[~2020-10-10] MED LIST changes: +Coumadin2 MG PO
[2020-10-10 10:57] LABS: HEMATOCRIT 39.4 % (37.0-47.0); MEAN CELL VOLUME 76.2 fl (81.0-99.0); MEAN CORPUSCULAR HGB 22.1 pg (27.0-31.0); MEAN CORPUSCULAR HGB CONC 28.9 g/dl (33.0-37.0); MEAN PLATELET VOLUME 10.4 fl (9.6-12.3); RED BLOOD COUNT 5.17 10*6/uL (4.10-5.10); RED CELL DISTRI WIDTH 17.5 % (0-14.5); WHITE BLOOD COUNT 7.5 10*3/uL (4.8-10.8)
[2020-10-10 11:24] LABS: ALBUMIN 3.5 gm/dl (3.1-4.5); CREATININE 1.18 mg/dL (0.55-1.02); POTASSIUM 4.5 mmol/L (3.5-5.1)
[2020-10-10 11:34] LABS: TOTAL PROTEIN 7.6 gm/dL (6.4-8.2)
[2020-10-10 11:48] LABS: FREE T4 1.08 ng/dl (0.76-1.46)
== END | disposition home or self-care (01) ==
LOC: LAB 10:10
PROVIDERS: ATTEND Physician Assistant
DX: N30.00 Acute cystitis without hematuria (principal); I10 Essential (primary) hypertension; H33.21 Serous retinal detachment, right eye; I48.0 Paroxysmal atrial fibrillation; R00.2 Palpitations

== ENCOUNTER → 2020-12-02 | Outpatient (CLI) | payer MEDICARE, MEDICAID ==
[2020-12-02 13:46] LABS: HEMATOCRIT 47.3 % (37.0-47.0); MEAN CELL VOLUME 82.5 fl (81.0-99.0); MEAN CORPUSCULAR HGB 24.6 pg (27.0-31.0); MEAN CORPUSCULAR HGB CONC 29.8 g/dl (33.0-37.0); MEAN PLATELET VOLUME 10.4 fl (9.6-12.3); RED BLOOD COUNT 5.73 10*6/uL (4.10-5.10); RED CELL DISTRI WIDTH 24.6 % (0-14.5); WHITE BLOOD COUNT 9.5 10*3/uL (4.8-10.8)
[2020-12-02 14:13] LABS: IRON 39 ug/dL (50-170); TOTAL IRON BINDING CAPACITY 431 ug/dl (250-450)
== END | disposition home or self-care (01) ==
LOC: LAB 13:26
PROVIDERS: ATTEND Physician Assistant
DX: I10 Essential (primary) hypertension (principal); I48.20 Chronic atrial fibrillation, unspecified; R42 Dizziness and giddiness; D50.8 Other iron deficiency anemias; R73.03 Prediabetes; R73.09 Other abnormal glucose; E66.09 Other obesity due to excess calories

== ENCOUNTER 2021-12-19 10:30 | Inpatient (IN) | payer MEDICARE, MEDICAID ==
[~2021-12-19] VITALS: Ht 167.6 cm; Wt 111.3 kg
[2021-12-19 10:45] VITALS: BP 169/64
[2021-12-19 10:54] LABS: BASO % 0.4 % (0.0-1.0); EOS # 0.1 10*3/uL (0.0-0.4); EOS % 1.1 % (1.0-4.0); HEMATOCRIT 42.9 % (37.0-47.0); LYMPH # 1.6 10*3/uL (1.3-4.4); LYMPH % 21.6 % (27.0-41.0); MEAN CELL VOLUME 82.5 fl (81.0-99.0); MEAN CORPUSCULAR HGB 25.2 pg (27.0-31.0); MEAN CORPUSCULAR HGB CONC 30.5 g/dl (33.0-37.0); MEAN PLATELET VOLUME 10.7 fl (9.6-12.3); MONO # 0.3 10*3/uL (0.1-1.0); MONO % 4.6 % (3.0-9.0); NEUT # 5.2 10*3/uL (2.3-7.9); PLATELET COUNT AUTOMATED 235 10*3/uL (130-400); RED CELL DISTRI WIDTH 15.7 % (0-14.5); WHITE BLOOD COUNT 7.2 10*3/uL (4.8-10.8)
[2021-12-19 11:08] LABS: ACT PARTIAL THROMBO TIME 41.5 SECONDS (20.0-32.1); INTERNATIONAL NORM RATIO 2.9 (2.0-3.5)
[2021-12-19 11:09] LABS: CREATININE 1.17 mg/dL (0.55-1.02); POTASSIUM 3.9 mmol/L (3.5-5.1); TOTAL PROTEIN 7.4 gm/dL (6.4-8.2)
[2021-12-19 14:00] VITALS: BP 154/90
[2021-12-19 16:00] VITALS: BP 134/44
[2021-12-19 20:00] VITALS: BP 144/84
[2021-12-20] VITALS: BP 136/78
[2021-12-20 07:26] LABS: BASO % 0.5 % (0.0-1.0); EOS # 0.2 10*3/uL (0.0-0.4); HEMATOCRIT 46.5 % (37.0-47.0); LYMPH # 2.3 10*3/uL (1.3-4.4); LYMPH % 29.2 % (27.0-41.0); MEAN CELL VOLUME 81.7 fl (81.0-99.0); MEAN CORPUSCULAR HGB 24.4 pg (27.0-31.0); MEAN CORPUSCULAR HGB CONC 29.9 g/dl (33.0-37.0); MEAN PLATELET VOLUME 11.1 fl (9.6-12.3); MONO # 0.5 10*3/uL (0.1-1.0); MONO % 6.4 % (3.0-9.0); NEUT # 4.8 10*3/uL (2.3-7.9); NEUT % 61.6 % (47.0-73.0); PLATELET COUNT AUTOMATED 259 10*3/uL (130-400); RED BLOOD COUNT 5.69 10*6/uL (4.10-5.10); RED CELL DISTRI WIDTH 15.9 % (0-14.5); WHITE BLOOD COUNT 7.8 10*3/uL (4.8-10.8)
[2021-12-20 07:49] LABS: CREATININE 1.17 mg/dL (0.55-1.02); FREE T4 1.05 ng/dl (0.76-1.46); POTASSIUM 4.4 mmol/L (3.5-5.1); TOTAL PROTEIN 7.7 gm/dL (6.4-8.2)
[2021-12-20 07:53] LABS: THYROID STIM HORMONE (HS) 4.47 uIU/ml (0.358-4.75)
[2021-12-20 07:58] LABS: VITAMIN D, 25-HYDROXY 27.2 ng/mL (30-100)
[2021-12-20 08:00] VITALS: BP 124/83
[2021-12-20 12:00] VITALS: BP 107/53
[2021-12-20 16:00] VITALS: BP 111/74
[2021-12-20 20:00] VITALS: BP 115/52
[2021-12-21] VITALS: BP 118/52
[2021-12-21 06:07] LABS: CREATININE 1.18 mg/dL (0.55-1.02); POTASSIUM 4.3 mmol/L (3.5-5.1)
[2021-12-21 08:00] VITALS: BP 116/58
[2021-12-21 12:00] VITALS: BP 119/54
[2021-12-21] MEDS ORDERED: JARDIANCE10 MG PO (14:14)
[2021-12-21] MEDS ORDERED: K-TAB20 MEQ PO (14:14)
[2021-12-21] MEDS ORDERED: LASIX20 MG PO (14:14)
[2021-12-21 15:05] VITALS: BP 117/56
[2021-12-21 20:00] VITALS: BP 129/56
[2021-12-22] VITALS: BP 113/68
[2021-12-22 06:19] LABS: INTERNATIONAL NORM RATIO 3.3 (2.0-3.5)
[2021-12-22 06:28] LABS: CREATININE 1.25 mg/dL (0.55-1.02); POTASSIUM 4.2 mmol/L (3.5-5.1)
[2021-12-22 08:00] VITALS: BP 132/91
[2021-12-22] MEDS ORDERED: VITAMIN D350 MC2 PO (08:58)
== END 2021-12-22 11:45 | disposition home or self-care (01) | DRG 291 ==
LOC: ED 10:30 → EDHOLD 11:42 → 5E 11:42 → EDHOLD 12:06 → 5E 12:07
PROVIDERS: Emergency Medicine; Family Medicine; ADMIT Internal Medicine; ATTEND Internal Medicine
DX: I13.0 Hypertensive heart and chronic kidney disease with heart failure and stage 1 through stage 4 chronic kidney disease, or unspecified chronic kidney disease (principal); I50.33 Acute on chronic diastolic (congestive) heart failure; I48.21 Permanent atrial fibrillation; Q21.0 Ventricular septal defect; N18.30 Chronic kidney disease, stage 3 unspecified; J45.909 Unspecified asthma, uncomplicated; K21.9 Gastro-esophageal reflux disease without esophagitis; I34.0 Nonrheumatic mitral (valve) insufficiency; E66.9 Obesity, unspecified; Z90.49 Acquired absence of other specified parts of digestive tract; Z90.710 Acquired absence of both cervix and uterus; Z68.39 Body mass index [BMI] 39.0-39.9, adult

== ENCOUNTER 2023-12-27 14:57 | Emergency (ER) | payer MEDICARE, MEDICAID ==
[~2023-12-27] VITALS: Ht 167.6 cm; Wt 104.3 kg
[~2023-12-27 14:57] MED LIST changes: +AMOX-CLAV 875-1 EACH PO; +JARDIANCE10 MG PO; +K-TAB20 MEQ PO; +VITAMIN D350 MC2 PO
[2023-12-27] MEDS ORDERED: SODIUM CHLORIDE 0.9% 1,000 ML IV ONE (16:10)
[2023-12-27 16:20] LABS: BASO % 0.4 % (0.0-1.0); EOS # 0.1 10*3/uL (0.0-0.4); EOS % 1.2 % (1.0-4.0); HEMATOCRIT 38.9 % (37.0-47.0); LYMPH # 1.8 10*3/uL (1.3-4.4); LYMPH % 21.3 % (27.0-41.0); MEAN CELL VOLUME 79.7 fl (81.0-99.0); MEAN CORPUSCULAR HGB 22.7 pg (27.0-31.0); MEAN CORPUSCULAR HGB CONC 28.5 g/dl (33.0-37.0); MEAN PLATELET VOLUME 10.8 fl (9.6-12.3); MONO # 0.5 10*3/uL (0.1-1.0); MONO % 5.5 % (3.0-9.0); NEUT # 5.9 10*3/uL (2.3-7.9); NEUT % 71.4 % (47.0-73.0); PLATELET COUNT AUTOMATED 233 10*3/uL (130-400); RED BLOOD COUNT 4.88 10*6/uL (4.10-5.10); RED CELL DISTRI WIDTH 17.2 % (0-14.5); WHITE BLOOD COUNT 8.3 10*3/uL (4.8-10.8)
[2023-12-27 16:39] LABS: POTASSIUM 3.7 mmol/L (3.4-5.1)
== END 2023-12-27 17:27 | disposition home or self-care (01) ==
LOC: ED 14:57
PROVIDERS: Emergency Medicine
DX: I16.0 Hypertensive urgency (principal); I48.91 Unspecified atrial fibrillation; I50.9 Heart failure, unspecified; Z98.890 Other specified postprocedural states; Z90.49 Acquired absence of other specified parts of digestive tract; Z90.710 Acquired absence of both cervix and uterus

== ENCOUNTER 2023-12-31 08:53 | Emergency (ER) | payer MEDICARE, MEDICAID ==
[~2023-12-31] VITALS: Ht 167.6 cm; Wt 104.3 kg
[2023-12-31 09:49] LABS: BASO % 0.4 % (0.0-1.0); EOS # 0.1 10*3/uL (0.0-0.4); HEMATOCRIT 39.1 % (37.0-47.0); LYMPH # 1.4 10*3/uL (1.3-4.4); LYMPH % 20.6 % (27.0-41.0); MEAN CORPUSCULAR HGB 23.1 pg (27.0-31.0); MEAN CORPUSCULAR HGB CONC 28.9 g/dl (33.0-37.0); MEAN PLATELET VOLUME 9.8 fl (9.6-12.3); MONO # 0.4 10*3/uL (0.1-1.0); MONO % 5.2 % (3.0-9.0); NEUT # 4.9 10*3/uL (2.3-7.9); NEUT % 72.5 % (47.0-73.0); PLATELET COUNT AUTOMATED 211 10*3/uL (130-400); RED BLOOD COUNT 4.89 10*6/uL (4.10-5.10); RED CELL DISTRI WIDTH 17.3 % (0-14.5); WHITE BLOOD COUNT 6.8 10*3/uL (4.8-10.8)
[2023-12-31 10:13] LABS: POTASSIUM 4.1 mmol/L (3.4-5.1); TOTAL PROTEIN 6.7 gm/dL (6.0-8.0)
== END 2023-12-31 10:53 | disposition home or self-care (01) ==
LOC: ED 08:53
PROVIDERS: Internal Medicine
DX: I10 Essential (primary) hypertension (principal); Z79.899 Other long term (current) drug therapy; Z79.01 Long term (current) use of anticoagulants; Z90.49 Acquired absence of other specified parts of digestive tract; Z90.710 Acquired absence of both cervix and uterus; Z98.890 Other specified postprocedural states

== ENCOUNTER → 2024-01-08 | Outpatient (CLI) | payer MEDICARE, MEDICAID ==
[2024-01-08 14:40] LABS: BUN 16 mg/dl (9-23); CHLORIDE 105 mmol/L (98-107)
== END | disposition home or self-care (01) ==
LOC: LAB 13:48
PROVIDERS: ATTEND Internal Medicine Cardiovascular Disease
DX: I10 Essential (primary) hypertension (principal)

== ENCOUNTER 2024-05-27 10:35 | Emergency (ER) | payer MEDICARE, MEDICAID ==
[~2024-05-27] VITALS: Ht 167.6 cm; Wt 104.3 kg
[2024-05-27] MEDS ORDERED: COZAAR25 M1 PO (10:43)
[2024-05-27 11:02] LABS: BASO % 0.1 % (0.0-1.0); EOS # 0.1 10*3/uL (0.0-0.4); EOS % 0.9 % (1.0-4.0); HEMATOCRIT 37.5 % (37.0-47.0); MEAN CELL VOLUME 80.8 fl (81.0-99.0); MEAN CORPUSCULAR HGB 23.3 pg (27.0-31.0); MEAN CORPUSCULAR HGB CONC 28.8 g/dl (33.0-37.0); MEAN PLATELET VOLUME 10.4 fl (9.6-12.3); MONO # 0.6 10*3/uL (0.1-1.0); MONO % 8.5 % (3.0-9.0); NEUT # 5.4 10*3/uL (2.3-7.9); NEUT % 77.6 % (47.0-73.0); PLATELET COUNT AUTOMATED 168 10*3/uL (130-400); RED BLOOD COUNT 4.64 10*6/uL (4.10-5.10); RED CELL DISTRI WIDTH 15.9 % (0-14.5); WHITE BLOOD COUNT 6.9 10*3/uL (4.8-10.8)
[2024-05-27 11:13] LABS: ACT PARTIAL THROMBO TIME 34.7 SECONDS (20.0-32.1)
[2024-05-27 11:34] LABS: ALKALINE PHOSPHATASE 73 U/L (46-116); BUN 12 mg/dl (9-23); CHLORIDE 105 mmol/L (98-107); SGPT/ALT 11 U/L (5-49); TOTAL PROTEIN 6.8 gm/dL (6.0-8.0)
[2024-05-27] MEDS ORDERED: methylPREDNISolone sod succ 125 MG VIAL IM ONE (13:15)
[2024-05-27] MEDS ORDERED: AZITHROMYCIN 250 MG TAB PO ONE (13:15)
[2024-05-27] MEDS ORDERED: Albuterol Sulf/Ipratropium 3 ML VIAL NEB ONE (13:15)
[2024-05-27] MEDS ORDERED: AVPAK AZITHROM250 M1 PO (14:01)
[2024-05-27] MEDS ORDERED: VENT7GM INH (14:01)
== END 2024-05-27 14:07 | disposition home or self-care (01) ==
LOC: ED 10:35
PROVIDERS: Internal Medicine
DX: J40 Bronchitis, not specified as acute or chronic (principal); Z20.822 Contact with and (suspected) exposure to COVID-19; I11.0 Hypertensive heart disease with heart failure; I50.9 Heart failure, unspecified; I48.91 Unspecified atrial fibrillation; Z90.49 Acquired absence of other specified parts of digestive tract; Z90.710 Acquired absence of both cervix and uterus; Z98.890 Other specified postprocedural states

== ENCOUNTER → 2025-03-12 | Outpatient (CLI) | payer MEDICARE, MEDICAID ==
[~2025-03-12] MED LIST changes: +AVPAK AZITHROM250 M1 PO; +COZAAR25 M1 PO; +HYDROCODONE-AC1 EAC1 PO
== END | disposition home or self-care (01) ==
LOC: ORTHO 01:02
PROVIDERS: ATTEND Orthopaedic Surgery
DX: S82.61XD Displaced fracture of lateral malleolus of right fibula, subsequent encounter for closed fracture with routine healing (principal); S82.851D Displaced trimalleolar fracture of right lower leg, subsequent encounter for closed fracture with routine healing; R60.0 Localized edema; X58.XXXD Exposure to other specified factors, subsequent encounter

== ENCOUNTER → 2025-04-09 | Outpatient (CLI) | payer MEDICARE, MEDICAID | END | disposition home or self-care (01) | LOC: ORTHO 04:04 | PROVIDERS: ATTEND Orthopaedic Surgery | DX: S82.851D Displaced trimalleolar fracture of right lower leg, subsequent encounter for closed fracture with routine healing (principal); X58.XXXD Exposure to other specified factors, subsequent encounter ==

== ENCOUNTER → 2025-05-24 | Outpatient (CLI) | payer MEDICARE, MEDICAID | END | disposition home or self-care (01) | LOC: ORTHO 05:05 | PROVIDERS: ATTEND Orthopaedic Surgery | DX: S82.851D Displaced trimalleolar fracture of right lower leg, subsequent encounter for closed fracture with routine healing (principal); X58.XXXD Exposure to other specified factors, subsequent encounter ==